=== PATIENT | female | born 1940 | race Caucasian/White ===

== ENCOUNTER 2018-12-21 08:17 | Observation (INO) ==
[2018-12-21] MEDS ORDERED: BOOSTRIX VACCINE IM ONE (08:52)
--- NOTE | 2018-12-21 09:11 | Diag Imaging Result Doc PS360 ---
EXAM: CHEST-PORTABLE HISTORY: fall TECHNIQUE: Portable chest COMPARISON: 10/01/2018 FINDINGS: The lungs are well expanded. No contusion. No pneumothorax. The heart is not enlarged. The vessels are not distended. There are no infiltrates. No effusion identified. IMPRESSION: Negative exam. Electronically signed by Donovan Greco 12/21/2018 9:09 AM
--- NOTE | 2018-12-21 09:18 | PROVIDER DOCUMENTATION ---
HPI-General Adult - General Chief Complaint: Fall Stated Complaint: fall Time Seen by Provider: 12/21/18 08:44 Source: patient, EMS Allergies/Adverse Reactions: Patient Allergies Allergy/AdvReac Type Severity Reaction Status Date / Time No Known Allergies Allergy Verified 12/21/18 08:49 - History of Present Illness -Gen Adult Nature of Presenting Problems: Pt. is 78yof that presents by EMS from the [place] with c/o falling sometime during the night. Pt. reports she doesn't remember falling. EMS states the nursing staff found her in bed this morning with blood on her head and blood on the floor. Pt. denies any pain. EMS reports a laceration to the posterior scalp. Location of Pain/Injury: reports: head. denies: none, face, mouth, neck, chest, upper extremity, hand(s), abdomen, back, pelvis, genitalia, lower extremity, feet, upper body, lower body, generalized, other Pain Radiation: reports: no radiation. denies: arm(s), back, buttocks, chest, epigastric, feet, groin, jaw, flank (L), legs (lower), LLQ, LUQ, neck, periumbilical, flank (R), RLQ, RUQ, shoulder(s), scapula, scrotal, sternal notch, suprapubic, legs (upper), urethral, vaginal, other Quality of Pain: reports: aching. denies: cramping, pressure, throbbing, tightness Severity: reports: mild. denies: moderate, severe Onset/Duration: reports: unsure, abrupt Timing: reports: still present. denies: improving, constant, getting worse Context/Activities at Onset: reports: light activity, recent trauma history. denies: none, moderate activity, vigorous activity, recent emotional stress, recent physical stress, possible bad food, cold exposure, eating, out of country travel, rest, sleep, sexual activity, other Modifying Factors: improves with: nothing Associated Symptoms: reports: other (Laceration). denies: denies symptoms, anxiety, arm pain, back/neck pain, chest pain, constipation, cough, diaphoresis, diarrhea, dizziness, EENT symptoms, fatigue, fever/chills, genitourinary problems, headaches, heartburn, joint pain, loss of appetite, malaise, muscle aches, sinus congestion/drainage, nausea, rash, seizure, shortness of breath, sensory/motor loss, pain with inspiration, swelling/mass in abdomen, syncope, vomiting, weakness, trouble walking Similar Symptoms Previously?: Yes Recently seen or treated by another doctor?: No Review of Systems - Adult - REVIEW OF SYSTEMS - ADULT Constitutional: reports: no symptoms reported Eyes: reports: no symptoms reported Ears, Nose, Mouth & Throat: reports: no symptoms reported Cardiovascular: reports: no symptoms reported Respiratory: reports: no symptoms reported Gastrointestinal: reports: no symptoms reported Genitourinary: reports: no symptoms reported Musculoskeletal: reports: no symptoms reported Integumentary: reports: see HPI, other (Scalp laceration). denies: hair loss, itching, rash Neurological: reports: no symptoms reported Psychiatric: reports: no symptoms reported Past History - Adult - PAST MEDICAL HISTORY-ADULT Review of Records: reports: Old Records Reviewed, Nursing Assessment Review, Medications Reviewed, Social history reviewed & non-contributory. - IMMUNIZATION STATUS Childhood Immunizations: See Nurse Assessment Flu Vaccine: See Nurse Assessment - FAMILY HISTORY Family History: reviewed, not pertinent - SOCIAL HISTORY Smoking: non-smoker Physical Exam-General - PHYSICAL EXAM-ADULT Initial Vital Signs Reviewed: Yes - CONSTITUTIONAL General Appearance: alert, no apparent distress, thin. negative: anxious, slow to respond, obtunded, combative - EYES Eyes: PERRL/EOMI, pink conjunctivae. negative: conjuctival exudate, scleral icterus, subconjunctival hemorrhage - HEAD, EARS, NOSE, MOUTH & THROAT HENMT: moist mucous membranes. negative: angioedema, frontal tenderness, maxillary tenderness - NECK Neck: non-tender, full range of motion, supple, normal inspection. negative: lymphadenopathy, trachial deviation, tender lateral, tender midline, thyromegaly - RESPIRATORY Respiratory: lungs clear, normal breath sounds. negative: crackles, rales, rhonchi, stridor, wheezing - CARDIOVASCULAR Cardiovascular: normal peripheral pulses, regular rate, rhythm, no edema, no JVD . negative: extra beats, friction rub, irregularly irregular - GASTROINTESTINAL (ABDOMEN) Abdominal Exam: normal bowel sounds, non tender, soft. negative: distended, guarding, rigid, rebound, tenderness, hernia, mass - LYMPHATIC Lymphatic: no adenopathy. negative: axilla node tender, cervical node tenderness - MUSCULOSKELETAL Back Exam: normal inspection, no CVA tenderness, no vertebral tenderness. negative: ecchymosis, swelling, vertebral tenderness Extremity: normal inspection. negative: deformity, erythema, inflammation Peripheral Pulses: radial (R): 2+, radial (L): 2+ - SKIN Integumentary: normal color, normal turgor, laceration(s) (There is a 1.5 cm laceration to the posterior scalp). negative: cyanosis, ecchymosis, erythema, swelling, tenderness - NEUROLOGIC Neurologic: grossly normal, no motor/sensory deficits. negative: aphasia, facial droop, focal weakness, motor weakness, sensory deficit - PSYCHIATRIC Psych/Mental Status: oriented x 3. negative: anxious, paranoid, tearful Progress - PLAN OF CARE/RESULTS Progress/Plan/Lab Results: Vital Signs - 8 hr 12/21/18 08:34 Temperature 97.6 F Pulse Rate 77 Respiratory Rate 17 Blood Pressure 157/84 O2 Sat by Pulse Oximetry 99 Orders Category Date Time Status Misc. NRSG Communication Order DIRECTED Care 12/21/18 08:52 Active Saline Loc NOW Care 12/21/18 08:51 Active CHEST-PORTABLE [RAD] Stat Exams 12/21/18 08:[address] HEAD/C-SPINE W/O CONTRAST [CT] Stat Exams 12/21/18 08:51 Ordered CBC WITH ELECTRONIC DIFF [HEME] Stat Lab 12/21/18 09:05 Ordered CK PROFILE [SP CHEM] Stat Lab 12/21/18 09:05 Ordered COMPREHENSIVE METABOLIC PANEL [CHEM] Stat Lab 12/21/18 09:05 Ordered URINALYSIS W/POSS RFLX CULT [URINALYSIS] Stat Lab 12/21/18 08:51 Uncollected Diph,Pertuss(Acell),Tet Vac/Pf [Boostrix Vaccine] Med 12/21/18 08:52 Discontinued 0.5 ml IM .ONCE ONE EKG [EKG] Stat Ther 12/21/18 08:51 Ordered Laboratory Tests 12/21/18 12/21/18 12/21/18 09:05 09:05 09:45 WBC 4.96 RBC 4.61 Hgb 12.2 Hct 38.6 MCV 83.7 MCH 26.5 L MCHC 31.6 L RDW Std Deviation 16.2 H Plt Count 248 MPV 9.2 Immature Gran % (Auto) 0.0 Neut % (Auto) 50.4 Lymph % (Auto) 34.9 Day % (Auto) 10.5 H Eos % (Auto) 3.6 Baso % (Auto) 0.6 Immature Gran # (Auto) 0.00 Neut # (Auto) 2.50 Lymph # (Auto) 1.73 Day # (Auto) 0.52 Eos # (Auto) 0.18 Baso # (Auto) 0.03 Sodium 143 Potassium 3.4 L Chloride 104 Carbon Dioxide 30 Anion Gap 9 BUN 24 H Creatinine 0.9 Estimated GFR/1.73 m2 > 60 BUN/Creatinine Ratio 27 Glucose 88 Calculated Osmolality 288 Calcium 9.2 Total Bilirubin 0.21 AST 15 ALT 11 Alkaline Phosphatase 58 Creatine Kinase 64 Total Protein 7.0 Albumin 4.1 Globulin 2.9 Albumin/Globulin Ratio 1.4 Urine Source CATH Urine Color YELLOW Urine Turbidity HAZY Urine pH 6.5 Ur Specific [place] 1.022 Urine Protein TRACE A Ur Glucose (Stick) NEGATIVE Ur Ketones (Stick) NEGATIVE Urine Blood NEGATIVE Urine Nitrite NEGATIVE Urine Bilirubin NEGATIVE Urobilinogen Dipstick NORMAL Urine Leukocytes LARGE A Urine WBC (Auto) TNTC A Urine RBC (Auto) <10 U Epithel Cells (Auto) <10 Urine Bacteria (Auto) 4+ Discussed results and plan of care with patient. Patient agrees with plan and verbalizes understanding. Result Diagrams: 12/21/18 09:05 12/21/18 09:05 - XRAY 1 XRAY Study: Chest ([facility] [address] [facility], [address], [place] [address] Department of Imaging Patient: JERMAINE CONTE Date: 12/21/18#: [id number] : 2ADM Status: PRE ERAcct#: [id number] Age/Sex: 78/FRoom/Bed: Loc: ED Ordering Physician: Eric Sinclair Family Physician: Dequan Lees MD Reason for Procedure: fall Signed EXAM: CHEST-PORTABLE HISTORY: fall TECHNIQUE: Portable chest COMPARISON: 10/01/2018 FINDINGS: The lungs are well expanded. No contusion. No pneumothorax. The heart is not enlarged. The vessels are not distended. There are no infiltrates. No effusion identified. IMPRESSION: Negative exam. Electronically signed by Donovan Greco 12/21/2018 9:09 AM 12/21/18908 Interpreting Physician: Donovan Greco MD Dictated Date/Time: 12/21/18907 cc: Eric Sinclair; Dequan Lees MD) XRAY Interpretation: See note - CT/MRI 1 CT Study: Cervical Spine ([facility] [address] [place] [address], [address], [place] [address] Department of Imaging Patient: JERMAINE CONTE Date: 09/30/18#: [id number] : 1940DM Status: [facility]#: [id number] Age/Sex: 77/FRoom/Bed: Loc: ED Ordering Physician: Harmeet Iraheta Family Physician: Dequan Lees MD Reason for Procedure: AMS Signed EXAM: CT HEAD W/O CONTRAST INDICATION: AMS TECHNIQUE: This exam was performed using automated exposure control, adjustment of mA or kV according to patient size, and/or use of iterative reconstruction technique. COMPARISON: None. FINDINGS: There is p atchy low attenuation in the periventricular and subcortical white matter suggesting mild to moderate microangiopathy. 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 There is no definite acute infarct given the limited sensitivity of CT versus MRI. There is no discrete intracranial mass, mass effect, or intracranial hemorrhage. There is fairly severe maxillary, ethmoid, and sphenoid sinus mucosal disease, probably acute on chronic. Surrounding soft tissues and bony structures are essentially unremarkable, otherwise. IMPRESSION: 1.Chronic appearing intracranial changes as described. No evidence of acute intracranial pathology. 2.Paranasal sinusitis. Electronically signed by Jem Johnson 10/01/2018 8:10 AM 10/01/18 0810 Interpreting Physician: Jem Johnson MD Dictated Date/Time: 10/01/18 0805 cc: Harmeet Iraheta; Dequan Lees MD), Head CT Results: See note - CONSULTS/PCP/HOSPITALIST Notification #1 *Consult/PCP/Hospitalist*: Shaila ARZATE for Dr. Hurt Time Discussed: 10:44 Reason/Comments: Admission Consult Disposition: Will see in ED, Admit Departure - Departure Date of Disposition Decision: 12/21/18 Time of Disposition Decision: 10:41 DIAGNOSIS: Laceration, Confusion UTI (urinary tract infection) Qualifiers: Urinary tract infection type: acute cystitis Hematuria presence: without hematuria Qualified Code(s): N30.00 - Acute cystitis without hematuria Disposition: ADMITTED INPATIENT 09 Certified Medical Emergency: Emergent Condition: Stable Additional Freetext Instructions: Return to ED in 7 to 10 days for staple removal ED Follow Up Instructions: You have been treated by a care provider in the Emergency Department. These in structions are being provided to you so you can have an understanding of how to care for yourself upon discharge. Upon discharge from the Emergency Department, you are responsible for making arrangements for follow-up care by a physician of your choice. Take all prescribed medications as directed. Return to the Emergency Department immediately for any new or worsening symptoms. You may call the Physician Referral phone number at [phone] to obtain a list of Physicians who are taking new patients. Referrals and Follow-Ups: Dequan Lees MD [Primary Care Provider] - Discharge Education: Laceration Care, Adult, Urinary Tract Infection, Adult - Critical Care Note This patient required my direct & personal management of CC.: No Attestation - Physician/ MAGDI Attestation Patient care was provided by Advanced Practice Provider:: Yes Advanced Practice Provider:: Eric Sinclair Advanced Practice Provider documentation review:: The Mid-level provider documentation, treatment plan and medical decision making was reviewed by the physician who agrees with all treatment and medical decision making by the MLP. The physician spent face to face time with patient:: No Advanced Practice Provider documentation review:: Supervising physician onsite and consulted in the evaluation and care of this patient. The physician did not have a face to face encounter with the patient.
[2018-12-21 09:24] LABS: BASO# 0.03 X1000 (0.0-0.2); BASO% 0.6 % (0.0-0.8); EOS# 0.18 X1000 (0.0-0.7); EOS% 3.6 % (0.0-10.0); HEMATOCRIT 38.6 % (37.0-47.0); HEMOGLOBIN 12.2 g/dL (12.0-16.0); LYMPH# 1.73 X1000 (1.2-3.4); LYMPH% 34.9 % (20.5-51.1); MCH 26.5 PG (27-31); MCHC 31.6 g/dL (33-37); MCV 83.7 FL (81-99); MONO# 0.52 X1000 (0.11-0.59); MONO% 10.5 % (1.7-9.3); MPV 9.2 FL (7.4-10.4); NEUT% 50.4 % (42.2-75.2); PLT 248 X1000 (130-400); RBC 4.61 XMIL (4.2-5.4); RDW 16.2 % (11.5-14.5); WBC 4.96 X1000 (4.8-10.8)
--- NOTE | 2018-12-21 09:37 | Diag Imaging Result Doc PS360 ---
CT HEAD/C-SPINE W/O CONTRAST - 12/21/2018 INDICATION: Fall COMPARISON: 10/01/2018 FINDINGS: Head CT: The ventricles and sulci are normal in size and contour. No intracranial mass or hemorrhage. The skull is intact. The sinuses, mastoids, and middle ears are clear. Cervical spine: Alignment is anatomic. There is advanced multilevel disc and facet degeneration. This is worst at C5-6 and C6-7. There are posterior disc bulges at these levels. No significant central canal stenosis. No fracture or subluxation. IMPRESSION: No acute injury to the head or cervical spine. Advanced cervical spondylosis. This exam was performed using automated exposure control, adjustment of mA or kV according to patient size, and/or use of iterative reconstruction technique Electronically signed by Jaison Elias 12/21/2018 9:35 AM
[2018-12-21 09:51] LABS: AGAP 9; ALB/GLOB RATIO 1.4; ALBUMIN 4.1 g/dL (3.5-5.0); ALKALINE PHOSPHATASE 58 U/L (32-104); BUN 24 mg/dL (8-22); CALCIUM 9.2 mg/dL (8.8-10.2); CHLORIDE 104 mmol/L (98-107); CK PROFILE 64 U/L (24-173); COSMO 288; CREATININE 0.9 mg/dL (0.5-0.9); ESTIMATED GFR > 60; GLUCOSE 88 mg/dL (70-104); GOT 15 U/L (10-30); GPT 11 U/L (10-36); POTASSIUM 3.4 mmol/L (3.5-5.1); SODIUM 143 mmol/L (136-145); TCO2 30 mmol/L (25-35); TOTAL BILIRUBIN 0.21 mg/dL (0.20-1.00)
[2018-12-21 09:53] LABS: URINE SOURCE CATH
[2018-12-21 10:03] LABS: BILIRUBIN URINE NEGATIVE (NEGATIVE); BLOOD URINE NEGATIVE (NEGATIVE); COLOR YELLOW; GLUCOSE URINE NEGATIVE (NEGATIVE); KETONE URINE NEGATIVE (NEGATIVE); LEUKOCYTES URINE LARGE (NEGATIVE); NITRITE URINE NEGATIVE (NEGATIVE); PH URINE 6.5; PROTEIN URINE TRACE mg/dL (NEGATIVE); SP GRAVITY URINE 1.022; TURBIDITY URINE HAZY (CLEAR); UR EPITHELIAL CELLS <10 /HPF (<10); URINE BACTERIA 4+ /HPF; URINE RBC <10 /HPF (<10); URINE WBC TNTC /HPF (<10); UROBILINOGEN URINE NORMAL (NORMAL)
[2018-12-21] MEDS ORDERED: ROCEPHIN 1 GM in NS 50 ML IV ONE (10:32)
[2018-12-21] MEDS ORDERED: TYLENOL PO PRN (10:55)
[2018-12-21] MEDS ORDERED: ZOFRAN IV PRN (10:55)
[2018-12-21] MEDS ORDERED: NS 1,000 ML IV SCH (11:00)
--- NOTE | 2018-12-21 11:05 | EKG Report ---
Test Performed on : 12/21/2018 10:43:22 AM Test Reason : Fall Blood Pressure : / mmHG Vent. Rate : 085 BPM Atrial Rate : 085 BPM P-R Int : 146 ms QRS Dur : 084 ms QT Int : 376 ms P-R-T Axes : 075 055 084 degrees QTc Int : 447 ms Normal sinus rhythm. Anteroseptal infarct , age undetermined Abnormal ECG When compared with ECG of 01-OCT-2018 01:01, Anteroseptal infarct is now present Unconfirmed Result
[2018-12-21] MEDS: NS 1,000 ML IV SCH ×2 (13:05→22:17)
--- NOTE | 2018-12-21 13:50 | ED EKG INTERP ---
This chart was entered by Iris Carranza Scribe, acting as scribe for Ike Le MD. EKG Interpretation - EKG Time of EKG reading by physician:: 10:43 EKG Read and Signed by:: Ike Le EKG Interpretation (*Must complete 3 of following elements*): Abnormal Rate: 85 Rhythm: normal sinus rhythm [place]: normal MA Interval: normal Comments: anteroseptal infarct, age undetermined Attestation - Physician/ MAGDI Attestation Patient care was provided by Advanced Practice Provider:: Yes Advanced Practice Provider:: Eric Sinclair Advanced Practice Provider documentation review:: The Mid-level provider docum entation, treatment plan and medical decision making was reviewed by the physician who agrees with all treatment and medical decision making by the [facility]. The physician spent face to face time with patient:: No Advanced Practice Provider documentation review:: Supervising physician onsite and consulted in the evaluation and care of this patient. The physician did not have a face to face encounter with the patient. This chart was documented by the indicated scribe, (Iris Carranza Scribe) and accurately reflects the services I performed and decisions made by me, Ike Le MD, as attested by the provider's signature.
--- NOTE | 2018-12-21 16:58 | HISTORY AND PHYSICAL ---
ADMITTING PHYSICIAN: Dr. Gee GAMING WORKER: Dr. Dequan Lees CHIEF COMPLAINTS: Altered mental status and fall. HISTORY OF PRESENT ILLNESS: Ms. Villegas is a 78-year-old female who was found at [facility] today in the floor. She had a gash to the back of her head from the fall. There was blood noted on the floor. The patient had altered mental status and a large bruise noted to the top of her right foot. The patient does have a history of Alzheimer's dementia and is noted to have a history of wondering. The patient was brought to the ER today and was noted to have a UTI on laboratory findings with positive 4+ bacteria on urinalysis and a large amount of leukocytes in the urine. White blood cell count was negative. Upon assessment, the patient is a frail white female that is not oriented to person, place or time. Daughter is at bedside and states the patient is confused like this all the time. There is a small 1.5 cm cut to the back of the head with 2 shantal intact. There is a large bruise noted to the top of the right foot, all other skin intact. The patient is stating she has to use the bathroom. The patient is in a brief. The brief is soiled. The nurse comes in the room and cleans the patient up while in the room. No other problems identified upon assessment. The patient denies any pain, no nausea or vomiting, no dizziness. The patient is negative for headache or shortness of breath. PAST MEDICAL HISTORY: Alzheimer's with dementia, hypertension, dyspnea, incontinence. PAST SURGICAL HISTORY: Hysterectomy, benign cancer removal. FAMILY HISTORY: No pertinent family history noted. SOCIAL HISTORY: The patient lives at [facility]. She denies any alcohol, tobacco or drug abuse. ALLERGIES: No known drug allergies. MEDICATIONS: There is no home medication reconciliation in the computer at this time. LABS AND DIAGNOSTICS: White blood cell count 4.96, hemoglobin 12.2, hematocrit 38.6, platelet count 248,000. Chemistry: sodium 143, potassium 3.4, BUN 24, creatinine 0.9, GFR greater than 60, calcium 9.2, glucose 88, bilirubin 0.21, AST 15, ALT 11, creatinine kinase 64. Urine positive for trace protein, large amount of leukocytes, positive for white blood cell count and positive for bacteria 4+. Chest x-ray done on 12/21 negative for pneumothorax and no infiltrates noted. CT of the head and cervical spine done shows no acute injury of the head or cervical spine but does show advanced cervical spondylosis. The cervical spine does show advanced multilevel disc and facet degeneration that is worse at C5-6 and C6-7 which shows bulges at these levels. REVIEW OF SYSTEMS: A 12-point review of systems was performed and was negative except for that stated above in HPI. PHYSICAL EXAMINATION: VITAL SIGNS: Temperature 97.6; pulse rate 77; respiratory rate 17; blood pressure 157/84; O2 saturation 99% on room air; weight 121; height 5 feet 2 inches. ASSESSMENT: 1. UTI. 2. Altered mental status. 3. Multiple falls. 4. Alzheimer's dementia. 5. Hypertension. 6. Failure to thrive. PLAN: We will admit this patient to the medical floor for observation. We will start the patient on antibiotics and IV fluid hydration. We will restart the patient's home medications once reconciled in the computer. We will observe this patient for confusion and administer medications as needed. We will consult social insurance analyst for discharge planning. Dictated by CARITO Correia for Destiny Gee MD cc: Dequan Lees MD MTDBelinda
[2018-12-22] MEDS: NS 1,000 ML IV SCH ×2 (04:26→18:27)
[2018-12-22] MEDS: LOPRESSOR PO SCH ×3 (04:27→22:33)
[2018-12-22 07:39] LABS: BASO# 0.01 X1000 (0.0-0.2); BASO% 0.2 % (0.0-0.8); EOS# 0.16 X1000 (0.0-0.7); EOS% 3.9 % (0.0-10.0); HEMATOCRIT 35.3 % (37.0-47.0); HEMOGLOBIN 11.2 g/dL (12.0-16.0); LYMPH# 1.87 X1000 (1.2-3.4); LYMPH% 45.5 % (20.5-51.1); MCH 26.4 PG (27-31); MCHC 31.7 g/dL (33-37); MCV 83.1 FL (81-99); MONO# 0.49 X1000 (0.11-0.59); MONO% 11.9 % (1.7-9.3); MPV 9.2 FL (7.4-10.4); NEUT# 1.58 X1000 (1.4-6.5); NEUT% 38.5 % (42.2-75.2); PLT 240 X1000 (130-400); RBC 4.25 XMIL (4.2-5.4); RDW 15.7 % (11.5-14.5); WBC 4.11 X1000 (4.8-10.8)
[2018-12-22 07:54] LABS: AGAP 8; ALB/GLOB RATIO 1.6; ALBUMIN 3.8 g/dL (3.5-5.0); ALKALINE PHOSPHATASE 54 U/L (32-104); BUN 14 mg/dL (8-22); CALCIUM 8.8 mg/dL (8.8-10.2); CHLORIDE 105 mmol/L (98-107); COSMO 281; CREATININE 0.8 mg/dL (0.5-0.9); ESTIMATED GFR > 60; GLUCOSE 90 mg/dL (70-104); GOT 15 U/L (10-30); GPT 10 U/L (10-36); MAGNESIUM 1.9 mg/dL (1.5-2.7); POTASSIUM 3.2 mmol/L (3.5-5.1); SODIUM 141 mmol/L (136-145); TCO2 28 mmol/L (25-35); TOTAL BILIRUBIN 0.27 mg/dL (0.20-1.00); TOTAL PROTEIN 6.2 g/dL (6.3-8.3)
[2018-12-22] MEDS: PRILOSEC PO SCH (08:53)
[2018-12-22] MEDS: ROCEPHIN 1 GM in NS 50 ML IV SCH (11:10)
--- NOTE | 2018-12-22 19:25 | PROGRESS NOTE ---
DATE: 12/22/[address] Gee. Patient of Dr. Dequan Lees. A 78-year-old who presented with altered mental status. Found at [facility] on the floor. She had a gash in the back of her head from the fall. She had blood noted on the floor. Patient with altered mental status, large bruise noted on the top of her right foot. The patient did have a history of Alzheimer dementia. Noted to have a history of wandering. Brought into the emergency room. Noted to have a UTI, or at least sediment on urine, questionable whether it was symptomatic, 4+ bacteria, a large amount of leukocytes. In the blood, white blood cell count was negative. Upon assessment of the patient, she was not oriented to person, place, or time. Daughter at the bedside states patient is confused like this all of the time. There was a small 1 x 1.5 cm cut to the back of her head with 2 shantal, intact. Large bruise noted on the right foot. All other skin intact. Patient is stating she has to use the bathroom and patient was in her briefs and the briefs were soiled. Admitted with questionable UTI, altered mental status, multiple falls, Alzheimer dementia, hypertension, recent fall with blow to her head. She is awake and alert, in good spirits. She knows who she is, but she is not sure where she is and what time or date it is, but very pleasant. She has taken her shantal out of her head. Very active. OBJECTIVE: Temperature 98.9, pulse 84, respirations 17, blood pressure 165/88. Pupils are equal and round. Lungs are clear in all lung mejia. Cardiovascular: Regular rhythm and rate without murmur or S3. Abdomen is soft. Skin is warm and dry. REVIEW OF LAB: White count 4110, hematocrit is 35, platelet count 240,000. Sodium 141, potassium 3.2, chloride 105, BUN 14, creatinine 0.8, calcium 8.8, AST 15, ALT 10. Urinalysis too numerous to count white blood cells, less than 10 red blood cells, 4+ bacteria on presentation. We will continue present orders. She is on ceftriaxone 1 g q.24 h., normal saline at 75 mL/h, Lopressor 25 mg p.o. b.i.d., and Prilosec 40 mg daily. I think she will be close to be being discharged. We will discuss with Social Service. cc: Yahir Russ MD
[2018-12-23] MEDS: NS 1,000 ML IV SCH ×2 (05:35→17:06)
[2018-12-23] MEDS: LOPRESSOR PO SCH (10:13)
[2018-12-23] MEDS: PRILOSEC PO SCH (10:13)
[2018-12-23] MEDS: ROCEPHIN 1 GM in NS 50 ML IV SCH (10:49)
--- NOTE | 2018-12-23 12:57 | DISCHARGE SUMMARY ---
ADMISSION DATE: 12/21/2018 DISCHARGE DATE: 12/23/2018 ADMITTING PHYSICIAN: Dr. Gee. PRIMARY CARE PHYSICIAN: Dr. Isael Lees. CHIEF COMPLAINT: Presented with altered mental status and a fall. HISTORY OF PRESENT ILLNESS: This is a 78-year-old female, found at [facility] on the floor. She had a gash in the back of her head from a fall. There was blood noted on the floor, altered mental status, a large bruise noted on the top of her right foot. The patient has a history of Alzheimer's dementia, noted to have a history of wandering. Brought in from the ER. Noted to have some sediment in the urine; not sure if this was symptomatic, but she had 4+ bacteria, so we ended up treating it. White blood cell count was negative. It was not elevated. Upon assessment, the patient was oriented to person, but not place or time. Daughter at the bedside. The patient was confused. Daughter states that this is really baseline for she. She does tend to wander. She remains stable. Breathing comfortably. No distress. She pulled out her shantal, but was eating well, bowels are moving, and she at times knew she was in the hospital. She knows who she is, and answers questions appropriately, and really felt she was ready go back to the group home. LABORATORY DATA: Unremarkable. White count 4110, hematocrit 35, hemoglobin 11, with an MCV of 83, platelet count 240,000. Chemistries unremarkable. Creatinine 0.8. [place] like we could discharge her back to the group home. She had finished a 3-day course of ceftriaxone. She is on Lopressor 25 mg b.i.d., Prilosec 40 mg a day. cc: Yahir Russ MD
[2018-12-23 12:59] VITALS: BP 180/85
== END 2018-12-23 20:45 ==
LOC: SUPCPDRO → ED 08:17 → 3N 08:17 → SUATTDRO 11:31 → 3N 18:18
PROVIDERS: ATTEND Emergency Medicine
CPT/HCPCS: 70450; 71010; 71045; 72125; 80053; 81001; 82550; 83735; 85025; 87088; 90715; 93005; 97161; A9270; J0696; J2405; J7030

== ENCOUNTER 2019-09-09 14:01 | Inpatient (IN) ==
[2019-09-09 15:27] LABS: HEMATOCRIT 38.9 % (37.0-47.0); HEMOGLOBIN 12.2 g/dL (12.0-16.0); MCH 25.8 PG (27-31); MCHC 31.4 g/dL (33-37); MCV 82.4 FL (81-99); MPV 8.8 FL (7.4-10.4); RBC 4.72 XMIL (4.2-5.4); RDW 15.2 % (11.5-14.5); WBC 7.35 X1000 (4.8-10.8)
[2019-09-09] MEDS ORDERED: HALDOL IV PRN (15:37)
[2019-09-09 15:40] LABS: INR 0.97
[2019-09-09 15:41] LABS: PTT 33.5 Seconds (22.3-41.8)
[2019-09-09 15:51] LABS: AGAP 14; ALB/GLOB RATIO 0.9; ALBUMIN 3.4 g/dL (3.5-5.0); ALKALINE PHOSPHATASE 51 U/L (32-104); BUN 20 mg/dL (8-22); CALCIUM 9.3 mg/dL (8.8-10.2); CHLORIDE 97 mmol/L (98-107); COSMO 274; CREATININE 0.8 mg/dL (0.5-0.9); ESTIMATED GFR > 60; GLUCOSE 89 mg/dL (70-104); GOT 16 U/L (10-30); GPT 10 U/L (10-36); SODIUM 136 mmol/L (136-145); TCO2 25 mmol/L (25-35); TOTAL BILIRUBIN 0.38 mg/dL (0.20-1.00); TOTAL PROTEIN 7.2 g/dL (6.3-8.3)
--- NOTE | 2019-09-09 16:18 | HISTORY AND PHYSICAL ---
PRIMARY CARE PHYSICIAN: Dequan Lees MD PRIMARY ORTHOPEDIC DOCTOR: Jem Pineda MD CHIEF COMPLAINT: Right hip fracture. HISTORY OF PRESENT ILLNESS: The patient is an 78-year-old female, past medical history of Alzheimer dementia, hypertension, dyspnea, and incontinence who is a direct admission from Orthopedics. Reason is right hip fracture. There is no more information about it. There is no family in the room. The patient is demented and did not provide any more information except keep saying no to all questions that she is being asked. Also, there were no labs at the time of my evaluation except coagulations which were normal. PAST MEDICAL HISTORY: As per previous records patient has the following conditions: 1. Alzheimer with dementia. 2. Hypertension. 3. Urinary incontinence. PAST SURGICAL HISTORY: 1. Hysterectomy. 2. Benign cancer removal. FAMILY HISTORY: Noncontributory. SOCIAL HISTORY: Apparently patient has been in the [facility]. Patient according to previous records does not drink any alcohol, tobacco or drug abuse. ALLERGIES: No known drug allergies. REVIEW OF SYSTEMS: Not possible to evaluate because of the mental status of the patient. DISCHARGE PHYSICAL EXAMINATION: Vital Signs: Temperature 98.3, heart rate 80, respiratory rate 18, blood pressure 127/55. O2 saturation 95% on room air. General: This is a chronically ill- looking, 78-year-old female lying in bed, in no acute distress. Cardiovascular: S1, S2 heard. No murmurs, gallops, or rubs. Regular rate and rhythm. Respiratory: Clear bilaterally to auscultation. No work of breathing or using accessory muscles. Abdomen: Soft, nontender to palpation. Bowel sounds present. No organomegaly. Extremities: No clubbing, cyanosis, or edema. Peripheral pulses present in both legs. Neurological: The patient is alert, but does not answer any questions appropriately. Answers no to almost every single question. LABORATORY DATA: Pending at the time of dictation. ASSESSMENT AND PLAN: 1. Right hip fracture. I do not have any x-rays that document right hip fracture. That information was passed for the doctor who called for direct admission. In any case, all the CT and imaging are pending. We will continue to follow recommendations from orthopedics who suggest to admit this patient as a direct admission. At this point I am not sure how she got this fracture and if she has more injuries that we are not aware of. 2. Alzheimer disease. We will restart Seroquel at bedtime and considering her history of dementia the likelihood of her becoming agitated is very elevated so will restart this medication. We will place this patient on Haldol IV p.r.n. and also Ativan. 3. Hypertension. Blood pressure is under control. We will continue with the same management. 4. Further recommendations to follow according to clinical situation of the patient. cc: Jase Zapien MD MTDD
[2019-09-09] MEDS: NS 1,000 ML IV SCH (16:51)
[2019-09-09] MEDS: MORPHINE IV PRN ×2 (17:02→23:39)
[2019-09-09 18:48] LABS: URINE SOURCE CATH
[2019-09-09 18:53] LABS: BILIRUBIN URINE NEGATIVE (NEGATIVE); BLOOD URINE MODERATE (NEGATIVE); COLOR YELLOW; GLUCOSE URINE NEGATIVE (NEGATIVE); KETONE URINE 40 mg/dL (NEGATIVE); LEUKOCYTES URINE LARGE (NEGATIVE); NITRITE URINE NEGATIVE (NEGATIVE); PROTEIN URINE 30 mg/dL (NEGATIVE); SP GRAVITY URINE 1.028; TURBIDITY URINE HAZY (CLEAR); UROBILINOGEN URINE NORMAL (NORMAL)
[2019-09-09 19:03] LABS: UR EPITHELIAL CELLS <10 /HPF (<10); URINE BACTERIA 3+ /HPF; URINE RBC <10 /HPF (<10); URINE WBC TNTC /HPF (<10)
[2019-09-09 19:10] LABS: URINE CASTS NONE SEEN
--- NOTE | 2019-09-09 20:23 | Diag Imaging Result Doc PS360 ---
EXAM: CT HEAD/C-SPINE W/O CONTRAST - 09/09/2019 HISTORY: RIGHT HIP FX TECHNIQUE: CT head/cervical spine without contrast COMPARISON: 05/24/2019 CT head FINDINGS: CT head: There are some atrophic changes similar to prior. There is no evidence of infarct, although acute infarcts may not be immediately visible. There is no evidence of intracranial hemorrhage, mass effect, or midline shift. There is no evidence of skull fracture. CT cervical spine: The head is mildly turned towards the left. There are substantial degenerative changes at atlantoaxial articulation. There is substantial multilevel degenerative disc and degenerative facet disease. There is no fracture or subluxation identified. IMPRESSION: CT head: No visible acute intracranial abnormality. No evidence of intracranial injury. CT cervical spine: Substantial multilevel degenerative disease. No evidence of fracture or subluxation. This exam was performed using automated exposure control, adjustment of mA or kV according to patient size, and/or use of iterative reconstruction technique. Electronically signed by Ramses Holm 09/09/2019 8:21 PM
--- NOTE | 2019-09-09 20:34 | Diag Imaging Result Doc PS360 ---
EXAM: CT T-SPINE/L-SPINE W/O CON - 09/09/2019 HISTORY: RIGHT HIP FX TECHNIQUE: CT thoracic/lumbar spine without contrast COMPARISON: None. FINDINGS: CT thoracic spine: Multilevel degenerative disease with anterior, lateral, and some posterior osteophytes. There is also some associated endplate sclerosis at the lower thoracic spine, most prominent at T12-L1. There is no fracture or subluxation identified. CT lumbar spine: There is substantial multilevel degenerative facet disease. There is associated grade 1 anterolisthesis at L3-4. There is multilevel degenerative disease with borderline spinal stenosis at L5-S1, moderate spinal stenosis at L4-5, severe spinal stenosis at L3-4, and borderline spinal stenosis at L2-3. There is no fracture or acute appearing subluxation identified. IMPRESSION: CT thorax: Multilevel degenerative disease. No evidence of fracture or subluxation. CT lumbar spine: Multilevel degenerative disease. Associated borderline spinal stenosis at L5-S1, moderate spinal stenosis at L4-5, severe spinal stenosis at L3-4, and borderline spinal stenosis at L2-3. Associated grade 1 anterolisthesis at L2-3. No evidence of lumbar fracture or acute subluxation. This exam was performed using automated exposure control, adjustment of mA or kV according to patient size, and/or use of iterative reconstruction technique. Electronically signed by Ramses Holm 09/09/2019 8:31 PM
--- NOTE | 2019-09-09 20:40 | ORTHOPAEDICS CONSULTATION ---
DATE: 09/09/2019 CHIEF COMPLAINT: Right hip pain with right hip fracture. HISTORY OF PRESENT ILLNESS: This is a 78-year-old female who came to Dr. Pineda's office today and was seen, and it was found that she had a right femoral neck fracture with minimal displacement. We called the hospitalist service and they admitted the patient right away. We went ahead and ordered lab work and CAT scans of her back and C-spine and head to rule out any other acute injury. PAST MEDICAL HISTORY: Includes: 1. Alzheimer's with dementia. 2. Hypertension. 3. Urinary incontinence. 4. Frequent falls. PAST SURGICAL HISTORY: 1. Hysterectomy. 2. Benign cancer removal. SOCIAL HISTORY: The patient lives at [facility]. They reported that she had a probable fall and sent the patient to Dr. Pineda's office to be evaluated. ALLERGIES: There are no known drug allergies. REVIEW OF SYSTEMS: A 12-point review of systems were performed and pertinent positives were listed in HPI. The patient was difficult to perform an examination on as well as to evaluate due to her mental status. PHYSICAL EXAMINATION: Vital Signs: Temperature 98.3 degrees, pulse rate 80, respiratory rate 18, blood pressure 127/55, oxygen saturation 95% on room air. General: Patient is awake and sitting in the bed in no acute distress. She is unable to answer questions without saying no at this time. HEENT: Head is atraumatic, normocephalic. Eyes are equal and round. Neck: Supple. Pulmonary: There is equal chest expansion rise and fall. Abdomen: Soft, nontender. Extremity: Right lower extremity is slightly shortened and externally rotated. There is grimacing and tenderness along the right anterior joint line of the hip with palpation. There is decreased range of motion about the hip due to pain. LABORATORY DATA: White blood cells 7.35, red blood cells 4.72, hemoglobin 12.2, hematocrit 38.9, platelets 215,000. INR 0.97. Sodium 136, potassium 4.0, chloride 97, BUN 20, creatinine 0.8, glucose 89, albumin 3.4. ASSESSMENT: Right femoral neck fracture with impaction. PLAN: We plan to do a closed reduction and percutaneous pinning of the right hip sometime tomorrow. X-rays were performed at Dr. Pineda's office that confirmed a right femoral neck fracture with impaction. The CT images are pending at this time, and we will check on those tomorrow when we see the patient. Dictated by CARITO Castro for Jem Pineda MD cc: CARITO Castro MD
[2019-09-09] MEDS ORDERED: SEROQUEL PO SCH (21:00)
[2019-09-09] MEDS: LOPRESSOR PO SCH (23:45)
[2019-09-10] MEDS ORDERED: KEFZOL 2 GM/D5W 2 GM/50 ML IVPB IV ONE (06:00)
[2019-09-10 06:23] LABS: HEMOGLOBIN 11.4 g/dL (12.0-16.0); MCH 25.3 PG (27-31); MCHC 30.8 g/dL (33-37); MCV 82.2 FL (81-99); MPV 9.1 FL (7.4-10.4); RBC 4.5 XMIL (4.2-5.4); RDW 15.1 % (11.5-14.5); WBC 4.97 X1000 (4.8-10.8)
[2019-09-10 06:56] LABS: AGAP 11; BUN 23 mg/dL (8-22); CALCIUM 8.9 mg/dL (8.8-10.2); CHLORIDE 102 mmol/L (98-107); COSMO 282; CREATININE 0.7 mg/dL (0.5-0.9); ESTIMATED GFR > 60; GLUCOSE 85 mg/dL (70-104); POTASSIUM 3.8 mmol/L (3.5-5.1); SODIUM 140 mmol/L (136-145); TCO2 27 mmol/L (25-35)
[2019-09-10] MEDS: LOPRESSOR PO SCH ×2 (10:54→18:38)
[2019-09-10] MEDS: NS 1,000 ML IV SCH (11:04)
[2019-09-10] MEDS: MORPHINE IV PRN ×2 (11:04→16:54)
--- NOTE | 2019-09-10 12:41 | PROGRESS NOTE ---
DATE: 09/10/2019 SUBJECTIVE: Patient reports feeling fine. She is a little bit confused, but she reports that pain is under control. OBJECTIVE: Vital Signs: Temperature 98.5 degrees, heart rate 96, respiratory rate 20, blood pressure 128/60, and O2 saturation 97% on room air. General: This is a 78-year-old female lying in bed, in no acute distress. Cardiovascular: S1 and S2 heard. No murmurs, gallops, or rubs. Regular rate and rhythm. Respiratory: Clear bilaterally to auscultation. No work of breathing or using accessory muscles. Abdomen: Soft, nontender to palpation. Bowel sounds present. No organomegaly. Extremities: No clubbing, cyanosis, or edema. Peripheral pulses present in both legs. Neurological: Patient is alert and oriented x3. Moves 4 extremities. LABORATORY DATA: Reviewed. ASSESSMENT AND PLAN: 1. Right hip fracture. Orthopedics has been consulted, and they will apparently take her to the operating room today. We will follow recommendations. 2. Alzheimer disease. We will continue with Seroquel at home, and the rest of her home medication. 3. Hypertension. Blood pressure is under control. We will continue with the same management. 4. Disposition. We will continue following the lead from General Surgery. cc: Jase Zapien MD
--- NOTE | 2019-09-10 14:11 | ORTHOPAEDICS PROGRESS NOTE ---
DATE: 09/10/2019 SUBJECTIVE DATA: Ms. Villegas is seen for her right hip pain and right hip fracture at the femoral neck. She is scheduled to have surgery today. There is no family at bedside. The patient still appears confused. OBJECTIVE DATA: There is some tenderness along the anterior joint line of the right hip. There is mild shortening. There are good pedal pulses. The patient is alert and oriented times zero. ASSESSMENT: Right femoral neck fracture with frequent falls. PLAN: Plan to continue with their previous plan of the closed reduction, percutaneous pinning of the right hip at this time. We will likely do that some time this afternoon. Patient will be kept n.p.o. Dictated by CARITO Castro for Jem Pineda MD cc: CARITO Castro MD
[2019-09-10] MEDS ORDERED: DIPRIVAN 1% ONE (14:50)
[2019-09-10] MEDS ORDERED: NEOSPORIN G.U. IRRIGANT ONE (15:29)
[2019-09-10] MEDS ORDERED: NS 1,000 ML ONE (16:21)
[2019-09-10] MEDS ORDERED: MORPHINE IV PRN (18:25)
[2019-09-10] MEDS ORDERED: ZOFRAN IV PRN (18:25)
[2019-09-10] MEDS ORDERED: MILK OF MAGNESIA PO PRN (18:25)
[2019-09-10] MEDS ORDERED: HALDOL IV PRN (18:30)
[2019-09-10] MEDS: TYLENOL PO SCH (18:42)
--- NOTE | 2019-09-10 18:54 | OPERATIVE NOTE ---
PROCEDURE DATE: 09/10/2019 PREOPERATIVE DIAGNOSIS: Impacted right femoral neck fracture. POSTOP DIAGNOSIS: Impacted right femoral neck fracture. PROCEDURE: Closed reduction percutaneous pinning right hip. SURGEON: Eric Pineda MD. UPPER STITCHER: CARITO Castro. Mr. Hamilton was necessary for proper retraction and manipulation during the leg. ANESTHESIA: Spinal. COMPLICATION: None. PROCEDURE IN DETAIL: 78-year-old female with impacted right femoral neck fracture presents for surgical reduction and fixation. Risks, benefits, and no guarantees were discussed and she is willing to proceed. She was taken the operating room and satisfactory anesthesia obtained. The right hip was prepped and draped in usual sterile fashion. A time-out was taken to confirm operative site, procedure, and patient. The patient was prepped and draped on the [place] table in usual sterile fashion. A C-arm was used to verify accurate fracture reduction of the impacted femoral neck fracture and confirm the diagnosis. A lateral incision was made after a proper time- out along the lateral thigh opposite or lateral to the lesser trochanter. Dissection was carried down to the lateral cortex of the femur and under multiplanar image guidance, three 7.3 cannulated screw guide pins were placed in a triangular fashion up the femoral neck and seated in the femoral head. Care was taken to avoid any articular penetration of the femoral head. A 70 length and two 75 length partially threaded 7.3 cannulated screws were placed over the guides with secure fixation. The guides were removed. C-arm was used to verify accurate fracture reduction and hardware placement. She was recovered from anesthesia and transferred to the recovery room in stable condition. No intraoperative complications were noted. Instrument count and sponge count was correct at the time of closure. cc: Jem Pineda MD
[2019-09-10 19:10] LABS: AGAP 14; BUN 19 mg/dL (8-22); CALCIUM 8.7 mg/dL (8.8-10.2); CHLORIDE 100 mmol/L (98-107); COSMO 276; CREATININE 0.7 mg/dL (0.5-0.9); ESTIMATED GFR > 60; GLUCOSE 90 mg/dL (70-104); POTASSIUM 3.9 mmol/L (3.5-5.1); SODIUM 137 mmol/L (136-145); TCO2 23 mmol/L (25-35)
[2019-09-11] MEDS: KEFZOL 1 GM/D5W 1 GM/50 ML IVPB IV SCH ×3 (01:13→15:03)
[2019-09-11] MEDS: NS 1,000 ML IV SCH ×3 (01:18→13:29)
[2019-09-11] MEDS: LOPRESSOR PO SCH ×3 (01:19→23:23)
[2019-09-11] MEDS: TYLENOL PO SCH ×4 (02:15→23:23)
[2019-09-11] MEDS: PERIDEX MT SCH ×4 (02:15→23:48)
[2019-09-11] MEDS: SEROQUEL PO SCH ×4 (02:15→23:23)
[2019-09-11] MEDS: COLACE PO SCH ×2 (02:16→23:16)
[2019-09-11] MEDS: XARELTO PO SCH (06:14)
[2019-09-11 07:34] LABS: HEMATOCRIT 32.9 % (37.0-47.0); HEMOGLOBIN 10.3 g/dL (12.0-16.0); MCH 25.4 PG (27-31); MCHC 31.3 g/dL (33-37); RBC 4.06 XMIL (4.2-5.4); RDW 14.9 % (11.5-14.5); WBC 4.49 X1000 (4.8-10.8)
[2019-09-11 07:35] LABS: AGAP 12; BUN 14 mg/dL (8-22); CALCIUM 8.5 mg/dL (8.8-10.2); CHLORIDE 103 mmol/L (98-107); COSMO 279; CREATININE 0.7 mg/dL (0.5-0.9); ESTIMATED GFR > 60; GLUCOSE 91 mg/dL (70-104); POTASSIUM 3.6 mmol/L (3.5-5.1); SODIUM 140 mmol/L (136-145); TCO2 25 mmol/L (25-35)
[2019-09-11] MEDS: VITAMIN B-12 PO SCH (10:01)
[2019-09-11] MEDS: NAMENDA PO SCH ×2 (10:01→23:23)
[2019-09-11] MEDS: DEPAKOTE SPRINKLE PO SCH ×2 (10:01→23:16)
[2019-09-11] MEDS: CYMBALTA PO SCH (10:01)
[2019-09-11] MEDS: FERROUS SULFATE PO SCH (10:01)
[2019-09-11] MEDS: PRILOSEC PO SCH (10:02)
--- NOTE | 2019-09-11 10:43 | PROGRESS NOTE ---
DATE: 09/11/2019 SUBJECTIVE: Patient continues to be confused. She awakes to verbal stimuli but reports no pain at this point. OBJECTIVE: Vital Signs: Temperature 97.9 degrees, heart rate 98, respiratory rate 18, blood pressure 143/79, O2 saturation 94% on room air. General Examination: This is a chronically ill- looking, 78-year-old female lying in bed, in no acute distress. Cardiovascular exam: S1 and S2 heard. No murmurs, gallops, or rubs. Regular rate and rhythm. Respiratory exam: Clear bilaterally to auscultation. No work of breathing or using accessory muscles. Abdomen: Soft, nontender to palpation. Bowel sounds present. No organomegaly. Extremities: No clubbing, cyanosis, or edema. Peripheral pulses present in both legs. The patient has a dressing covering the right hip. Neurological exam: Patient is an is sleepy but responds to verbal stimuli still somehow confused but moves 4 extremities. LABORATORY DATA: Reviewed. ASSESSMENT AND PLAN: 1. Impacted right femoral neck fracture status post closed reduction with percutaneous pinning of the right hip. The patient is being followed by Orthopedics, will follow recommendations. 2. Alzheimer's disease. Will continue with home medications including Seroquel and Namenda. 3. Hypertension. Blood pressure is under control. We will continue with same management. 4. Disposition. At this point, we will continue following lead from Orthopedics. The patient lives in a correction so upon discharge the patient is going to be sent back there. cc: Jase Zapien MD
[2019-09-11] MEDS: OXY IR PO PRN (13:32)
--- NOTE | 2019-09-11 14:24 | ORTHOPAEDICS PROGRESS NOTE ---
DATE: 09/11/2019 SUBJECTIVE: Ms. Villegas is seen status post pinning of her hip fracture. She is postop day 1. OBJECTIVE: She is afebrile with stable vital signs. Her bandage is clean and dry. PLAN: She can be mobilized, touchdown weightbearing on the right lower extremity. We will check on her again tomorrow to be sure she is doing well. She will need discharge planning for assistance. cc: Jem Pineda MD
[2019-09-11] MEDS: MELATONIN PO SCH (23:18)
[2019-09-11] MEDS: DESYREL PO SCH (23:23)
[2019-09-12] MEDS: TYLENOL PO SCH ×3 (03:07→18:57)
[2019-09-12] MEDS: NS 1,000 ML IV SCH ×3 (03:09→20:39)
[2019-09-12] MEDS: XARELTO PO SCH (05:13)
[2019-09-12] MEDS: PRILOSEC PO SCH ×2 (05:13→07:36)
[2019-09-12 07:04] LABS: HEMATOCRIT 31.5 % (37.0-47.0); HEMOGLOBIN 9.7 g/dL (12.0-16.0); MCH 25.3 PG (27-31); MCHC 30.8 g/dL (33-37); MPV 8.8 FL (7.4-10.4); RBC 3.84 XMIL (4.2-5.4); RDW 14.8 % (11.5-14.5); WBC 4.38 X1000 (4.8-10.8)
[2019-09-12 07:27] LABS: AGAP 11; BUN 13 mg/dL (8-22); CALCIUM 8.5 mg/dL (8.8-10.2); CHLORIDE 106 mmol/L (98-107); COSMO 281; CREATININE 0.7 mg/dL (0.5-0.9); ESTIMATED GFR > 60; GLUCOSE 95 mg/dL (70-104); POTASSIUM 3.6 mmol/L (3.5-5.1); SODIUM 141 mmol/L (136-145); TCO2 24 mmol/L (25-35)
[2019-09-12] MEDS: NAMENDA PO SCH (10:06)
[2019-09-12] MEDS: CYMBALTA PO SCH (10:06)
[2019-09-12] MEDS: FERROUS SULFATE PO SCH (10:06)
[2019-09-12] MEDS: SEROQUEL PO SCH ×2 (10:06→17:24)
[2019-09-12] MEDS: PERIDEX MT SCH (10:07)
[2019-09-12] MEDS: VITAMIN B-12 PO SCH (10:07)
[2019-09-12] MEDS: DEPAKOTE SPRINKLE PO SCH (10:07)
[2019-09-12] MEDS: LOPRESSOR PO SCH (10:07)
[2019-09-12] MEDS: OXY IR PO PRN ×2 (10:10→18:57)
--- NOTE | 2019-09-12 10:12 | ORTHOPAEDICS PROGRESS NOTE ---
DATE: 09/12/2019 Ms. Villegas is seen status post pinning of her hip. Examination reveals the incision to be clean and dry. She is afebrile with stable vital signs. She can be transferred to rehab facility at this point. I will need to follow up with her in roughly 2 weeks for x-rays. She can be touchdown weightbearing on the involved lower extremity. Will be available as needed at this point. cc: Jem Pineda MD
--- NOTE | 2019-09-12 10:12 | PROGRESS NOTE ---
DATE: 09/12/2019 SUBJECTIVE: The patient continues to be confused. She answers no to all questions that I ask, but she does not report to be in any distress. OBJECTIVE: Vital Signs: Temperature 98.1 degrees, heart rate 78, respiratory rate 20, blood pressure 166/72, O2 saturation 96% on room air. General: This is a chronically ill-looking and demented, 78-year-old, female, lying in bed in no acute distress. Cardiovascular: S1 and S2 heard. No murmurs, gallops, or rubs. Regular rate and rhythm. Respiratory: Clear bilaterally to auscultation. No work of breathing. Abdomen: Soft, nontender to palpation. Bowel sounds present. Extremities: Dressing covering the right hip. Peripheral pulses present in both legs. Neurological: The patient is awake, but recently confused. Moves all 4 extremities spontaneously. LABORATORY DATA: Reviewed. ASSESSMENT AND PLAN: 1. Impacted right femoral neck fracture, status post closed reduction with percutaneous pinning of the right hip. The patient is being followed Orthopedics. Will follow recommendations. 2. Alzheimer's disease. The patient is currently on home medications, including Namenda and Seroquel. Will continue with the same management. 3. Hypertension. Blood pressure is under control. Will continue with the same medications. 4. Disposition. At this point, the patient is stable. We are following recommendations from Orthopedics. If the patient is cleared by them tomorrow, I think she can go back to her care home. cc: Jase Zapien MD
[2019-09-13] MEDS: DESYREL PO SCH (01:06)
[2019-09-13] MEDS: DEPAKOTE SPRINKLE PO SCH ×2 (01:06→09:51)
[2019-09-13] MEDS: COLACE PO SCH (01:06)
[2019-09-13] MEDS: LOPRESSOR PO SCH ×2 (01:06→09:51)
[2019-09-13] MEDS: TYLENOL PO SCH ×2 (01:07→09:51)
[2019-09-13] MEDS: MELATONIN PO SCH (01:07)
[2019-09-13] MEDS: PERIDEX MT SCH ×2 (01:07→09:58)
[2019-09-13] MEDS: SEROQUEL PO SCH ×2 (01:07→09:52)
[2019-09-13] MEDS: NAMENDA PO SCH ×2 (01:07→09:52)
[2019-09-13] MEDS: NS 1,000 ML IV SCH (04:25)
[2019-09-13] MEDS: XARELTO PO SCH (06:46)
[2019-09-13] MEDS: PRILOSEC PO SCH (06:46)
[2019-09-13 06:52] LABS: HEMATOCRIT 30.4 % (37.0-47.0); HEMOGLOBIN 9.7 g/dL (12.0-16.0); MCHC 31.9 g/dL (33-37); MCV 81.5 FL (81-99); MPV 8.8 FL (7.4-10.4); RBC 3.73 XMIL (4.2-5.4); RDW 14.7 % (11.5-14.5); WBC 5.03 X1000 (4.8-10.8)
[2019-09-13] MEDS: VITAMIN B-12 PO SCH (09:52)
[2019-09-13] MEDS: FERROUS SULFATE PO SCH (09:52)
[2019-09-13] MEDS: CYMBALTA PO SCH (09:52)
--- NOTE | 2019-09-13 11:03 | DISCHARGE SUMMARY ---
ADMISSION DATE: 09/09/2019 DISCHARGE DATE: 09/13/2019 PRIMARY CARE PHYSICIAN: Dr. Dequan Lees. ORTHOPEDIC PHYSICIAN: Dr. Pineda. CONSULTS: Orthopedics. ADMISSION DIAGNOSES: 1. Right hip fracture. 2. Alzheimer's disease. 3. Hypertension. DISCHARGE DIAGNOSES: 1. Impacted right femoral neck fracture, status post closed reduction with percutaneous pinning of the right hip. 2. Alzheimer's disease. 3. Hypertension. SUMMARY OF FINDINGS: This is a 78-year-old female who presents as a direct admit from Orthopedics for a right hip fracture. No family was present at the time of admission, and the patient was demented and unable to provide any information. Orthopedics was consulted. Surgery was done on 09/10/2019 of a closed reduction percutaneous pinning of the right hip for an impacted right femoral neck fracture. Tolerated procedure well. Per orthopedic progress note yesterday, said she can be touchdown weightbearing on the involved lower extremity. Follow up with Orthopedics in roughly 2 weeks for x-rays, and it is felt that she can safely be discharged to rehab today. DISCHARGE MEDICATIONS: Vitamin B12 at 1000 mcg p.o. daily, divalproex 125 mg p.o. b.i.d., docusate sodium 200 mg p.o. at bedtime, duloxetine 20 mg p.o. daily, milk of magnesia 30 mL p.o. daily p.r.n., melatonin 5 mg 2 tablets p.o. at bedtime, memantine 5 mg p.o. b.i.d., metoprolol 25 mg p.o. b.i.d., omeprazole 40 mg p.o. daily, Oxy IR 5 mg p.o. every 3 hours p.r.n., quetiapine fumarate 50 mg p.o. b.i.d., quetiapine 100 mg p.o. at bedtime, Xarelto 10 mg p.o. every 24 hours, trazodone 25 mg p.o. at bedtime, Tylenol 650 mg p.o. every 4 to 6 hours p.r.n., Icar C one tablet p.o. daily, MiraLAX 17 grams p.o. b.i.d. FOLLOWUP: She will need to follow up with Orthopedics in the next 2 weeks for x-rays, and with her primary care physician once rehab is completed. TIME SPENT: A 35-minute discharge. Dictated by CARITO Ye for Jase Zapien MD Addendum: Patient is seen and examined by myself. Agree with CARITO note. It reflects my assessment and plan. Patient is being discharged in stable condition. Will be seen by PCP in a week after rehab discharge. cc: CARITO Ye MD Kirk L. Jackson, MD John R. Riehl, MD MTDD
[2019-09-13 12:05] VITALS: BP 151/80
== END 2019-09-13 14:28 | DRG 482 ==
LOC: DIRADM 14:01 → SUATTDRO 14:01 → 4N 14:36
PROVIDERS: ATTEND Internal Medicine